=== PATIENT | male | born 2000 | race Caucasian/White ===

== ENCOUNTER 2018-12-15 13:32 | Emergency (ER) | payer OTHER ==
[~2018-12-15] VITALS: Ht 175.3 cm; Wt 63.5 kg
[~2018-12-15 13:32] MED LIST: ARIP10 PO; CLON.1 PO; CONCERTA; ERYT.5TO RIGHTEYE; METHYLPHENIDATE; METPHE27ER PO; Opcon-A Eye Dro15 M1 OP; SERT50 PO
[2018-12-15] MEDS ORDERED: HYDCOR2.5C PR (15:24)
== END 2018-12-15 15:35 | disposition home or self-care (01) ==
LOC: ER 13:32
PROVIDERS: Physician Assistant
DX: K64.4 Residual hemorrhoidal skin tags (principal); F17.210 Nicotine dependence, cigarettes, uncomplicated
CPT/HCPCS: 87491; 87591; 96372; 99283-25; J0696

== ENCOUNTER 2019-09-03 13:29 | Emergency (ER) | payer SELFPAY ==
[~2019-09-03] VITALS: Ht 175.3 cm; Wt 63.5 kg
[~2019-09-03 13:29] MED LIST changes: +HYDCOR2.5C PR
[2019-09-03] MEDS ORDERED: PENVK500 PO (16:05)
== END 2019-09-03 16:08 | disposition home or self-care (01) ==
LOC: ER 13:29
DX: J02.0 Streptococcal pharyngitis (principal); F90.9 Attention-deficit hyperactivity disorder, unspecified type; F17.200 Nicotine dependence, unspecified, uncomplicated
CPT/HCPCS: 87081; 87147; 87430; 99283

== ENCOUNTER 2019-09-05 15:15 | Emergency (ER) | payer SELFPAY ==
[~2019-09-05] VITALS: Ht 175.3 cm; Wt 59.0 kg
[~2019-09-05 15:15] MED LIST changes: +PENVK500 PO
== END 2019-09-05 15:48 | disposition home or self-care (01) ==
LOC: ER 15:15
DX: J02.9 Acute pharyngitis, unspecified (principal); F17.200 Nicotine dependence, unspecified, uncomplicated
CPT/HCPCS: 87081; 87430; 99283

== ENCOUNTER 2020-04-03 18:19 | Emergency (ER) | payer SELFPAY ==
[~2020-04-03] VITALS: Ht 175.3 cm; Wt 63.5 kg
== END 2020-04-03 18:38 | disposition left against medical advice (07) ==
LOC: ER 18:19
DX: Z53.21 Procedure and treatment not carried out due to patient leaving prior to being seen by health care provider (principal)

== ENCOUNTER 2020-04-04 23:04 | Emergency (ER) | payer SELFPAY | END 2020-04-05 00:19 | disposition left against medical advice (07) | LOC: ER 23:04 | DX: Z53.21 Procedure and treatment not carried out due to patient leaving prior to being seen by health care provider (principal) ==

== ENCOUNTER 2020-04-08 14:23 | Emergency (ER) | payer OTHER ==
[~2020-04-08] VITALS: Ht 175.3 cm; Wt 68.0 kg
== END 2020-04-08 16:18 | disposition home or self-care (01) ==
LOC: ER 14:23
DX: S52.321A Displaced transverse fracture of shaft of right radius, initial encounter for closed fracture (principal); S52.221A Displaced transverse fracture of shaft of right ulna, initial encounter for closed fracture; F17.200 Nicotine dependence, unspecified, uncomplicated; W51.XXXA Accidental striking against or bumped into by another person, initial encounter; Y92.149 Unspecified place in prison as the place of occurrence of the external cause
CPT/HCPCS: 29125; 73090; 73110; 99283-25

== ENCOUNTER 2020-04-19 12:52 | Day surgery (SDC) | payer OTHER ==
[~2020-04-19] VITALS: Ht 175.3 cm; Wt 63.3 kg
== END 2020-04-19 17:42 | disposition home or self-care (01) ==
LOC: ORSCSDS 12:52
PROVIDERS: Orthopaedic Surgery
PROC: 0PSH04Z Reposition Right Radius with Internal Fixation Device, Open Approach (ICD-10-PCS; principal; 2020-04-19 13:30)
PROC: 0PSK0ZZ Reposition Right Ulna, Open Approach (ICD-10-PCS; principal; 2020-04-19 13:30)
DX: S52.351A Displaced comminuted fracture of shaft of radius, right arm, initial encounter for closed fracture (principal); S52.224A Nondisplaced transverse fracture of shaft of right ulna, initial encounter for closed fracture; F17.210 Nicotine dependence, cigarettes, uncomplicated
CPT/HCPCS: C1713; J0171; J0690; J1100; J1885; J2001; J2250; J2405; J2704; J2795; J3010; J7120

== ENCOUNTER 2020-04-25 21:44 | Emergency (ER) | payer OTHER ==
[~2020-04-25] VITALS: Ht 172.7 cm; Wt 63.5 kg
== END 2020-04-25 23:40 | disposition left against medical advice (07) ==
LOC: ER 21:44
DX: M79.631 Pain in right forearm (principal); F17.210 Nicotine dependence, cigarettes, uncomplicated; Z53.20 Procedure and treatment not carried out because of patient's decision for unspecified reasons
CPT/HCPCS: 99283

== ENCOUNTER 2020-05-09 20:09 | Emergency (ER) | payer OTHER ==
[~2020-05-09] VITALS: Ht 165.1 cm; Wt 63.5 kg
== END 2020-05-09 23:55 ==
LOC: ER 20:09
DX: Z02.89 Encounter for other administrative examinations (principal); S52.001D Unspecified fracture of upper end of right ulna, subsequent encounter for closed fracture with routine healing; F17.210 Nicotine dependence, cigarettes, uncomplicated; Z96.698 Presence of other orthopedic joint implants; X58.XXXD Exposure to other specified factors, subsequent encounter
CPT/HCPCS: 73090; 99283-25

== ENCOUNTER 2021-05-23 02:16 | Emergency (ER) | payer OTHER ==
[2021-05-24] MEDS ORDERED: NARCAN4 M1 (00:58)
== END 2021-05-23 02:30 | disposition home or self-care (01) ==
LOC: ER 02:16
DX: Z53.21 Procedure and treatment not carried out due to patient leaving prior to being seen by health care provider (principal)

== ENCOUNTER 2021-07-23 06:30 | Emergency (ER) | payer OTHER ==
[~2021-07-23] VITALS: Ht 175.3 cm; Wt 68.0 kg
[~2021-07-23 06:30] MED LIST changes: +NARCAN4 M1
[2021-07-23] MEDS ORDERED: AMOCLA875 PO (06:58)
== END 2021-07-23 07:18 | disposition home or self-care (01) ==
LOC: ER 06:30
DX: S51.851A Open bite of right forearm, initial encounter (principal); S20.311A Abrasion of right front wall of thorax, initial encounter; F17.210 Nicotine dependence, cigarettes, uncomplicated; W54.0XXA Bitten by dog, initial encounter
CPT/HCPCS: 99283; A9270

== ENCOUNTER 2022-01-28 17:13 | Observation (INO) | payer SELFPAY ==
[~2022-01-28] VITALS: Ht 175.3 cm; Wt 68.0 kg
[~2022-01-28 17:13] MED LIST changes: +AMOCLA875 PO
[2022-01-28 17:34] LABS: BASOPHILS ABSOLUTE AUTO 0.02 K/mm3 (0.00-0.23); BASOPHILS PERCENT AUTO 0 % (0-2); EOSINOPHILS ABSOLUTE AUTO 0.17 K/mm3 (0.00-0.68); EOSINOPHILS PERCENT AUTO 2 % (0-6); Hematocrit 41.6 % (37.0-53.0); Hemoglobin 14.3 g/dL (13.5-17.5); IMMATURE GRAN ABSOLUTE AUTO 0.02 K/mm3 (0.00-0.10); IMMATURE GRAN PERCENT AUTO 0 % (0-1); LYMPHOCYTES ABSOLUTE AUTO 1.95 K/mm3 (0.84-5.20); LYMPHOCYTES PERCENT AUTO 22 % (21-46); MONOCYTES ABSOLUTE AUTO 0.72 K/mm3 (0.16-1.47); MONOCYTES PERCENT AUTO 8 % (4-13); Mean Corpuscular HGB 28.9 pg (26.0-34.0); Mean Corpuscular HGB Conc 34.4 g/dL (31.5-36.5); Mean Corpuscular Volume 84 fL (80-100); Mean Platelet Volume 10.2 fL (9.1-12.4); NEUTROPHILS ABSOLUTE AUTO 5.92 K/mm3 (1.96-9.15); NEUTROPHILS PERCENT AUTO 67 % (41-73); Platelet Count 250 K/mm3 (150-400); RDW Coefficient Variation 12.2 % (11.7-14.2); RDW Standard Deviation 37.3 fL (35.1-46.3); Red Blood Cell Count 4.94 M/mm3 (4.30-5.90)
[2022-01-28 18:01] LABS: Alanine Aminotransfer (ALT/SGP 17 U/L (12-78); Albumin, Blood 4.7 g/dL (3.4-5.0); Albumin/Globulin Ratio 1.5 (0.8-1.8); Alk Phos 77 U/L (50-136); Anion Gap 8 mmol/L (6-16); Aspartate Aminotrans (AST/SGOT 17 U/L (12-37); Bilirubin, Total 0.5 mg/dL (0.1-1.0); Blood Urea Nitrogen 18 mg/dL (8-24); Bun/Creatinine Ratio 17.3 (12.0-20.0); CO2, Blood 22 mmol/L (21-32); Calcium, Blood 9.3 mg/dL (8.5-10.1); Chloride, Blood 110 mmol/L (98-108); Creatinine, Blood 1.04 mg/dL (0.60-1.20); Ethanol (Alcohol), Blood, Med <3 mg/dL; Globulin, Blood 3.1 g/dL (2.2-4.0); Glomerular Filtration Rate 103 (60-); Glucose, Blood 109 mg/dL (70-99); Potassium, Blood 3.8 mmol/L (3.5-5.5); Sodium, Blood 140 mmol/L (136-145); Total Protein, Blood 7.8 g/dL (6.4-8.2)
[2022-01-28 18:29] LABS: Source, Urine Clean Catch
[2022-01-28 18:36] LABS: Appearance, Urine Clear (Clear); Bilirubin, Urine Neg (Neg); Blood, Urine 1+ (Neg); Color, Urine Yellow (P-Yellow); Glucose Qualitative, Urine Neg (Neg); Ketones, Urine 2+ (Neg); Leukocyte Esterase, Urine Neg (Neg); Nitrite, Urine Neg (Neg); Protein, Urine 1+ (Neg); Specific Gravity, Urine 1.025 (1.003-1.022); Urobilinogen, Urine NORM (Normal)
[2022-01-28 18:49] LABS: Bacteria Few /hpf; Hyaline Casts 0-2 /lpf (0-2); Squamous Epithelial Cells Few /hpf (Few); U Amphetamine Screen Not Detected; U Barbituate Screen Not Detected; U Benzodiazapine Screen Not Detected; U Buprenorphine Screen Not Detected; U Cannabinoids Screen Not Detected; U Cocaine Screen Not Detected; U Methadone Screen Not Detected; U Methamphetamine Screen DETECTED; U Opiates Screen Not Detected; U Oxycodone Screen Not Detected; U Phencyclidine Screen Not Detected; U Propoxyphene Screen Not Detected; White Blood Cells, Urine 0-2 /hpf (0-5)
== END 2022-01-29 00:44 | disposition left against medical advice (07) ==
LOC: ER 17:13 → EOR 17:14
PROVIDERS: Student in an Organized Health Care Education/Training Program; ADMIT Emergency Medicine
DX: R41.82 Altered mental status, unspecified (principal); F15.10 Other stimulant abuse, uncomplicated; F17.210 Nicotine dependence, cigarettes, uncomplicated
CPT/HCPCS: 36415; 51701; 80053; 81001; 85025; 93005; 93010; 96374-59; 99285-25; G0378; G0480; J2405; J7030

== ENCOUNTER 2022-06-06 17:26 | Emergency (ER) | payer OTHER ==
[~2022-06-06] VITALS: Ht 175.3 cm; Wt 68.0 kg
[2022-06-06 19:04] LABS: Influenza A, PCR NEGATIVE (NEGATIVE); Influenza B, PCR NEGATIVE (NEGATIVE); Resp Syncytial Virus, PCR NEGATIVE (NEGATIVE); SARS-Cov-2 (COVID-19) PCR, MMC NEGATIVE (NEGATIVE)
== END 2022-06-06 18:15 | disposition home or self-care (01) ==
LOC: ER 17:26
PROVIDERS: Physician Assistant
DX: B34.9 Viral infection, unspecified (principal); F17.210 Nicotine dependence, cigarettes, uncomplicated; Z20.822 Contact with and (suspected) exposure to COVID-19
CPT/HCPCS: 0241U

== ENCOUNTER 2023-07-25 13:35 | Emergency (ER) | payer OTHER ==
[~2023-07-25] VITALS: Ht 175.3 cm; Wt 63.5 kg
[2023-07-25 13:41] VITALS: BP 126/61
[2023-07-25] MEDS ORDERED: AMOCLA875 PO (14:10)
== END 2023-07-25 14:21 | disposition home or self-care (01) ==
LOC: ER 13:35
DX: S81.852A Open bite, left lower leg, initial encounter (principal); T40.411A Poisoning by fentanyl or fentanyl analogs, accidental (unintentional), initial encounter; W54.0XXA Bitten by dog, initial encounter; F17.210 Nicotine dependence, cigarettes, uncomplicated
CPT/HCPCS: 99282

== ENCOUNTER 2023-08-02 16:27 | Emergency (ER) | payer OTHER ==
[~2023-08-02] VITALS: Ht 175.3 cm; Wt 65.8 kg
[2023-08-02 21:30] VITALS: BP 121/64
== END 2023-08-02 21:46 ==
LOC: ER 16:27
DX: S52.322A Displaced transverse fracture of shaft of left radius, initial encounter for closed fracture (principal); S52.222A Displaced transverse fracture of shaft of left ulna, initial encounter for closed fracture; W01.10XA Fall on same level from slipping, tripping and stumbling with subsequent striking against unspecified object, initial encounter; F17.210 Nicotine dependence, cigarettes, uncomplicated
CPT/HCPCS: 25605; 73080; 73090; 96372-59; 96374-59; 99283-25; J1885; J2060